=== PATIENT | female | born 1990 | race Caucasian/White ===

== ENCOUNTER 2022-12-06 08:14 | Emergency (ER) | payer OTHER ==
[~2022-12-06] VITALS: Ht 172.7 cm; Wt 63.5 kg
[2022-12-06 08:28] VITALS: BP_SYST 130
--- NOTE | 2022-12-06 08:50 | NUR ---
RECEIVED PT FROM KENZ[facility] SNIDER. PT BIB WITH C/O DIZZINESS AND FACIAL NUMBNESS. PT 2MONTHS . AAOX4. ON RA. DENIES N/V/D/C. DISTAL PULSES NORMAL. SKIN WARM, DRY, INTACT, NO EDEMA. SIDERAIL UP X2.
--- NOTE | 2022-12-06 08:51 | NUR ---
DR. REESE AT BEDSIDE TO ASSESS PT.
--- NOTE | 2022-12-06 08:53 | NUR ---
PT TAKEN TO C/T SCAN.
[2022-12-06 08:59] LABS: BASOPHILS % (AUTO) 0.4 % (0.0-2.0); EOSINOPHILS # (AUTO) 0.1 K/uL (0.0-0.4); EOSINOPHILS % (AUTO) 1.6 % (0.0-4.0); HEMATOCRIT 39.2 % (36-48); HEMOGLOBIN 13.7 g/dL (12.0-16.0); LYMPHOCYTES # (AUTO) 2.4 K/uL (1.0-5.5); LYMPHOCYTES % (AUTO) 43.2 % (20.5-51.5); MEAN CORPUSCULAR HEMOGLOBIN 28 pg (27-31); MEAN CORPUSCULAR HGB CONC 35 % (32-36); MEAN CORPUSCULAR VOLUME 81 fL (79.0-98.0); MONOCYTES # (AUTO) 0.3 K/uL (0.0-1.0); MONOCYTES % (AUTO) 4.8 % (1.7-9.3); NEUTROPHILS # (AUTO) 2.8 K/uL (1.8-7.7); PLATELET COUNT (AUTO) 161 K/uL (130-430); RED BLOOD CELL COUNT(AUTO) 4.85 MIL/uL (4.2-6.2); WHITE BLOOD COUNT (AUTO) 5.5 K/uL (4.8-10.8)
[2022-12-06 09:32] LABS: ALANINE AMINOTRANSFERASE 20 U/L (12-78); ALBUMIN 3.8 g/dL (3.4-4.8); ASPARTATE AMINOTRANSFERASE 14 U/L (10-37); CALCIUM 8.8 mg/dL (8.4-11.0); CREATININE 0.79 mg/dL (0.55-1.30); GLUCOSE 82 mg/dL (70-99); TOTAL BILIRUBIN 0.7 mg/dL (0.0-1.0); UREA NITROGEN, BLOOD 21 mg/dL (8-21)
[2022-12-06 09:46] LABS: GFR AFRICAN AMERICAN 108 mL/min (>90)
[2022-12-06 10:03] LABS: ANION GAP 8 (5-15); CHLORIDE 107 mmol/L (98-107)
--- NOTE | 2022-12-06 10:26 | NUR ---
Dr Butt at bedside discussing plan of care.
[2022-12-06 10:55] VITALS: BP_SYST 115
--- NOTE | 2022-12-06 10:58 | NUR ---
Patient given written and verbal discharge instructions and verbalizes understanding. ER Dr. Butt discussed with patient the results and treatment provided. Patient in stable condition. ID arm band removed. Patient educated on pain management and to follow up with PMD. Opportunity for questions provided and answered. Medication side effect fact sheet provided.
== END 2022-12-06 10:58 | disposition home or self-care (01) ==
LOC: SED 08:14
DX: F53.0 Postpartum depression (principal); R42 Dizziness and giddiness; R20.2 Paresthesia of skin; Z79.899 Other long term (current) drug therapy
CPT/HCPCS: 36415; 70450-TC; 76376; 80053; 84484; 85025; 93005; 99285

== ENCOUNTER 2023-11-06 16:32 | Emergency (ER) | payer OTHER ==
[~2023-11-06] VITALS: Ht 172.7 cm; Wt 61.2 kg
[2023-11-06 16:35] VITALS: BP_SYST 157; PULSE 88; RESP 18; TEMP 99.4; O2SAT 97
[2023-11-06] MEDS ORDERED: MAGNESIUM OXIDE 400 MG TABLET PO ONE (17:15)
[2023-11-06] MEDS ORDERED: GABAPENTIN 100 MG CAPSULE PO ONE (17:30)
[2023-11-06 17:49] VITALS: BP_SYST 157; PULSE 88; RESP 18; TEMP 99.4; O2SAT 97
== END 2023-11-06 17:49 ==
LOC: SED 16:32
DX: Z02.89 Encounter for other administrative examinations (principal); Z79.899 Other long term (current) drug therapy
CPT/HCPCS: 99284